=== PATIENT | female | born 1985 | race Caucasian/White ===

== ENCOUNTER 2018-04-27 16:15 | Emergency (ER) | payer SELFPAY ==
[~2018-04-27] VITALS: Ht 165.1 cm; Wt 51.0 kg
[2018-04-27 16:43] VITALS: BP 115/63
== END 2018-04-28 00:02 | disposition left against medical advice (07) ==
LOC: ER 17:23
DX: Z53.21 Procedure and treatment not carried out due to patient leaving prior to being seen by health care provider (principal)